=== PATIENT | female | born 1975 ===

== ENCOUNTER 2018-05-26 16:04 | Emergency (ER) | payer MEDICAID ==
[2018-05-26 16:04] VITALS: BMI 53.1
[2018-05-26] MEDS ORDERED: Albuterol-Ipratrop 3 mg / 0.5 (3 ml) UD INH STA (18:15)
[2018-05-26] MEDS ORDERED: Sodium Chloride 0.9% 1,000 ML IV STA (18:15)
--- NOTE | 2018-05-26 18:22 | ED PDOC ---
HPI: General Adult Time Seen by Provider: 05/26/18 18:07 Chief Complaint (Nursing): GI Problem Chief Complaint (Provider): Bodyaches History Per: Patient History/Exam Limitations: no limitations Onset/Duration Of Symptoms: Days (yesterday) Additional Complaint(s): Pt. with nausea, vomit, diarrhea, nonbloody. Weakness. Today pt. accidentally took 50mg more then her usual dose of 100mg of losartan (took total 150mg). Her bp was high in the morning and is low now. Feels light-headed and has bodyaches. No chest pain. ?dyspnea. No abd pain. Headache on the left frontal that is mild, not worst in her life. No neck pain. Past Medical History Reviewed: Nursing Documentation, Vital Signs Vital Signs: Last Vital Signs Temp 102.7 F H 05/26/18 16:18 Pulse 103 H 05/26/18 16:18 Resp 20 05/26/18 16:18 BP 100/67 05/26/18 16:18 Pulse Ox 99 05/26/18 16:18 - Medical History PMH: Anemia, Arthritis, Asthma, Fibromyalgia, Gall Bladder Disease (PT. HAD CHOLECYSECTOMY), HTN, Migraine (Last episode 4 months ago), Rheumatoid Arthritis Denies: Chronic Kidney Disease - Surgical History Surgical History: Cholecystectomy, Endoscopy - Family History Family History: States: Unknown Family Hx - Immunization History Hx Tetanus Toxoid Vaccination: No Hx Influenza Vaccination: No Hx Pneumococcal Vaccination: No - Home Medications Home Medications: Ambulatory Orders Medication Instructions Recorded Losartan/Hydrochlorothiazide 1 tab PO DAILY 11/03/14 [Hyzaar 100-25 Tablet] Omeprazole 40 mg PO DAILY 01/19/16 Zolpidem [Ambien] 10 mg PO HS PRN 06/05/17 - Allergies Allergies/Adverse Reactions: Allergies Allergy/AdvReac Type Severity Reaction Status Date / Time No Known Allergies Allergy Verified 05/26/18 16:18 Review of Systems ROS Statement: Except As Marked, All Systems Reviewed And Found Negative Constitutional: Positive for: Weakness Cardiovascular: Positive for: Light Headedness Respiratory: Positive for: Shortness of Breath Gastrointestinal: Positive for: Nausea, Vomiting, Diarrhea Neurological: Positive for: Weakness, Dizziness Physical Exam - Reviewed Nursing Documentation Reviewed: Yes Vital Signs Reviewed: Yes - Physical Exam Appears: Positive for: Non-toxic, No Acute Distress Head Exam: Positive for: ATRAUMATIC, NORMAL INSPECTION, NORMOCEPHALIC Skin: Positive for: Normal Color, Warm, DRY Eye Exam: Positive for: EOMI, Normal appearance, PERRL ENT: Positive for: Normal ENT Inspection Neck: Positive for: Normal, Painless ROM Cardiovascular/Chest: Positive for: Regular Rate, Rhythm Respiratory: Positive for: CNT, Normal Breath Sounds Gastrointestinal/Abdominal: Positive for: Soft, Tenderness (RLQ) Back: Positive for: Normal Inspection. Negative for: L CVA Tenderness, R CVA Tenderness Extremity: Positive for: Normal ROM. Negative for: Tenderness, Pedal Edema Neurologic/Psych: Positive for: Alert, waiter/waitress second class II-XII, Oriented. Negative for: Motor/Sensory Deficits, Aphasia, Facial Droop - ECG O2 Sat by Pulse Oximetry: 99 - Progress ED Course And Treament: 182: Stable. Dr. Becker to take over care. Fu on labs, imaging, ekg. Here with vague symptoms. Has fever, will need to eval for sources. Disposition - Clinical Impression Clinical Impression: Weakness - Patient ED Disposition Is Patient to be Admitted: Transfer of Care - Disposition Disposition: Transfer of Care Disposition Time: 18:25 Condition: STABLE Patient Signed Over To: Mitch Becker
[2018-05-26] MEDS ORDERED: Iohexol 240 (50 ml) PO ONE (18:25)
[2018-05-26] MEDS ORDERED: Albuterol-Ipratrop 3 mg / 0.5 (3 ml) UD IH STA (18:25)
[2018-05-26 18:49] LABS: BASO % 0.5 % (0.0-2.0); EOS % 0.4 % (0.0-4.0); HEMOGLOBIN 9.4 g/dL (12.0-16.0); LYMPH # 0.6 K/uL (1.0-4.3); LYMPH % 7.8 % (20.0-40.0); MEAN CELL VOLUME 66.3 fl (81.0-99.0); MEAN CORPUSCULAR HEMOGLOBIN 19.8 pg (27.0-31.0); MEAN CORPUSCULAR HGB CONC 29.8 g/dL (33.0-37.0); MEAN PLATELET VOLUME 7.7 fl (7.2-11.7); MONO # 0.5 K/uL (0.0-0.8); MONO % 5.8 % (0.0-10.0); NEUT # 6.9 K/uL (1.8-7.0); NEUT % 85.5 % (50.0-75.0); NRBC % 0.1 % (0.0-0.0); PLATELET COUNT 400 K/uL (130-400); RBC 4.76 Mil/uL (3.80-5.20); RED CELL DISTRIBUTION WIDTH 22.7 % (11.5-14.5); WHITE BLOOD COUNT 8.1 K/uL (4.8-10.8)
[2018-05-26 18:54] LABS: VENOUS BLOOD GAS BASE EXCESS -2.9 mmol/L (0.0-2.0); VENOUS BLOOD GAS PCO2 41 mmHg (40-60); VENOUS BLOOD GAS PO2 23 mm/Hg (30-55); VENOUS BLOOD PH 7.35 (7.32-7.43)
[2018-05-26 18:54] LABS: ALB/GLOB RATIO 1.3 (1.0-2.1); ALBUMIN 4.1 g/dL (3.5-5.0); ALT/SGPT 33 U/L (9-52); AST/SGOT 28 U/L (14-36); BLOOD UREA NITROGEN 19 mg/dl (7-17); CALCIUM 8.3 mg/dL (8.4-10.2); GFR NON-AFRICAN AMERICAN > 60
[2018-05-26] MEDS ORDERED: Iohexol 240 (50 ml) ONE (19:05)
[2018-05-26] MEDS ORDERED: Albuterol-Ipratrop 3 mg / 0.5 (3 ml) UD ONE (19:05)
--- NOTE | 2018-05-26 19:45 | ED PDOC ---
- Laboratory Results Result Diagrams: 05/26/18 18:40 05/26/18 18:40 - ECG O2 Sat by Pulse Oximetry: 99 Medical Decision Making Medical Decision Making: Time: 19:00 Patient care endorsed from Dr. Yoon to Dr. Becker pending flu workup and reevaluation. Time: 19:40 Patient is positive for Flu. Time: 2230 EXAM: CT Abdomen and Pelvis with IV contrast CLINICAL HISTORY: Body aches nausea,vomiting and diarrhea TECHNIQUE: Axial computed tomography images of the abdomen and pelvis with intravenous contrast. 853.56 mGy-cm CONTRAST: With; [id number] 95ML COMPARISON: None provided. FINDINGS: LUNG BASES: The lung bases appear clear. No pleural effusions are seen. LIVER: Unremarkable. GALLBLADDER AND BILE DUCTS: S/p cholecystectomy. Surgical clips are noted in the gallbladder fossa. PANCREAS: Unremarkable. SPLEEN: Unremarkable. ADRENAL GLANDS: Unremarkable. KIDNEYS, URETERS, AND BLADDER: The kidneys appear within normal limits. There is no hydronephrosis or hydroureter. No urinary calculi are seen. STOMACH AND BOWEL: Thick walled fluid filled duodenum and loops of jejunum compatible with enteritis. Thick walled fluid filled colon is noted with involvement of all segments compatible with diffuse pancolitis. Infectious and inflammatory etiologies are considered. APPENDIX: No evidence of acute appendicitis on CT examination. PERITONEUM: No free fluid. No free air. LYMPH NODES: Numerous enlarged mesenteric lymph nodes are noted associated with fat stranding compatible with acute mesenteric lymphadenitis. REPRODUCTIVE: Simple 5 x 3.5 cm right ovarian cyst is seen. This lesion is located adjacent to the bladder however fat plane is preserved and it does not appear to be a bladder diverticulum. The uterus and ovaries are otherwise unremarkable. VASCULATURE: No evidence of abdominal aortic aneurysm. BONES: No aggressive appearing osseous lesion. No acute osseous pathology evident. IMPRESSION: Enteritis as above. Pancolitis. Infectious and inflammatory etiologies are considered. Numerous enlarged mesenteric lymph nodes are noted associated with fat stranding compatible with acute mesenteric lymphadenitis. Simple 5 x 3.5 cm right ovarian cyst is seen. Consider correlation with pelvic US. Patient made aware of ovarian cyst and fully aware of rest of CT report. Clinical Impression: Mesenteric lymphadenitis, Weakness, Influenza flu positive pt given RX tamiflu as well as cipro flagyl for colitis pt feels better, tolerated po instructed to follow up with pcp in 1-2 days Upon provider evaluation patient is medically stable, and requires no further treatment in the ED at this time. Patient will be discharged with Tamiflu 75mg for flu. Counseling was provided and all questions were answered regarding diagnosis and need for follow up with [facility]Dr.Sayed Daisy. There is agreement to discharge plan. Return if symptoms persist or worsen. Scribe Attestation: Documented by Sterling Morgan and Geovani Love acting as scribes for Mitch Becker MD. Provider Scribe Attestation: All medical record entries made by the Scribe were at my direction and personally dictated by me. I have reviewed the chart and agree that the record accurately reflects my personal performance of the history, physical exam, medical decision making, and the department course for this patient. I have also personally directed, reviewed, and agree with the discharge instructions and disposition. Disposition Counseled Patient/Family Regarding: Studies Performed, Diagnosis, Need For Followup - Clinical Impression Clinical Impression: Weakness, Mesenteric lymphadenitis, Influenza, Colitis - POA Present On Arrival: None - Disposition Referrals: [facility] [Outside] [facility] [Outside] Disposition: Routine/Home Disposition Time: 01:21 Condition: IMPROVED Additional Instructions: follow up with your primary doctor dr ulola in 1-2 days take motrin for pain return to the ED with any worsening or concerning symptoms Prescriptions: Ciprofloxacin HCl [Cipro] 500 mg PO BID #20 tab Metronidazole [Flagyl] 500 mg PO TID #30 tablet Oseltamivir [Tamiflu] 75 mg PO BID #10 cap Instructions: Flu, Adult (DC), Mesenteric Lymphadenitis (DC), Weakness (ED) Forms: [employer] (P[employer]dein[employer])
[2018-05-26 21:03] LABS: ANISOCYTOSIS MODERATE; BANDS 2 % (0-2); BASOPHIL 1 % (0-2); EOSINOPHIL 1 % (0-7); HYPOCHROMIC SLIGHT; LYMPHOCYTE 10 % (20-50); MICROCYTOSIS SLIGHT; MONOCYTE 6 % (0-10); NEUTROPHIL 80 % (42-75); PLATELET ESTIMATE NORMAL (NORMAL); POIKILOCYTOSIS MODERATE; TOTAL CELLS COUNTED 100
[2018-05-26 21:04] LABS: OVALOCYTES SLIGHT; POLYCHROMIC SLIGHT
[2018-05-26] MEDS ORDERED: Sodium Chloride 0.9% 50 ML IV ONE (21:11)
[2018-05-26] MEDS ORDERED: Iohexol 300 100 ML IJ ONE (21:11)
[2018-05-26 23:56] VITALS: BP 113/68; PULSE 73; RESP 18; TEMP 99.3
[2018-05-27 00:30] VITALS: O2SAT 99
--- NOTE | 2018-05-27 08:44 | CARD ---
APPROVED REPORT Date of service: 05/26/2018 EKG Measurement Heart [id number] <Conclusion> Normal sinus rhythm ST & T wave abnormality, consider inferolateral ischemia Abnormal ECG
--- NOTE | 2018-05-27 09:32 | CT ---
Date of service: 05/26/2018 PROCEDURE: CT Abdomen and Pelvis with contrast HISTORY: abd pain COMPARISON: None. TECHNIQUE: Contrast dose: Radiation dose: Total exam DLP = 853.56 mGy-cm. This CT exam was performed using one or more of the following dose reduction techniques: Automated exposure control, adjustment of the mA and/or kV according to patient size, and/or use of iterative reconstruction technique. FINDINGS: LOWER THORAX: Unremarkable. LIVER: Unremarkable. No gross lesion or ductal dilatation. GALLBLADDER AND BILE DUCTS: Cholecystectomy. Gastric sleeve surgery. PANCREAS: Unremarkable. No gross lesion or ductal dilatation. SPLEEN: Unremarkable. ADRENALS: Bilateral adrenal thickening possibly related to adenomatous change; recommend correlation with noncontrast gradient echo MRI. KIDNEYS AND URETERS: Unremarkable. No hydronephrosis. No solid mass. VASCULATURE: Unremarkable. No aortic aneurysm. No aortic atherosclerotic calcification or mural plaque present. BOWEL: Unremarkable. No obstruction. No gross mural thickening. APPENDIX: Normal appendix. PERITONEUM: Haziness of the central mesentery with scattered lymph nodes compatible with underlying panniculitis/mesenteric adenitis. LYMPH NODES: Unremarkable. No enlarged lymph nodes. BLADDER: Unremarkable. REPRODUCTIVE: Bilateral ovarian cysts/cystic lesions measuring up to 5 centimeters the right ovary; recommend follow-up pelvic ultrasound. BONES: No acute fracture. OTHER FINDINGS: None. IMPRESSION: Bilateral ovarian cysts/cystic lesions measuring up to 5 centimeters the right ovary; recommend follow-up pelvic ultrasound. Bilateral adrenal thickening possibly related to adenomatous change; recommend correlation with noncontrast gradient echo MRI. Haziness of the central mesentery with scattered lymph nodes compatible with underlying panniculitis/mesenteric adenitis.
--- NOTE | 2018-05-27 13:14 | RAD ---
Date of service: 05/26/2018 HISTORY: dyspnea COMPARISON: No prior. FINDINGS: LUNGS: No active pulmonary disease. PLEURA: No significant pleural effusion identified, no pneumothorax apparent. CARDIOVASCULAR: No aortic atherosclerotic calcification present. Normal cardiac size. No pulmonary vascular congestion. OSSEOUS STRUCTURES: No significant abnormalities. VISUALIZED UPPER ABDOMEN: Normal. OTHER FINDINGS: None. IMPRESSION: No active disease.
== END 2018-05-27 01:55 | disposition home or self-care (01) ==
LOC: H.ER 16:04
DX: I88.0 Nonspecific mesenteric lymphadenitis (principal); M62.81 Muscle weakness (generalized); J11.1 Influenza due to unidentified influenza virus with other respiratory manifestations; N83.201 Unspecified ovarian cyst, right side; R50.9 Fever, unspecified
CPT/HCPCS: 71045; 74177; 80053; 81025; 82803; 85025; 87040; 87070; 87430; 87804; 93005; 96361; 96374; 99284; J1885; J7030; Q9966; Q9967